=== PATIENT | female | born 1930 | race Native Hawaiian/Other Pacific Islander ===

== ENCOUNTER 2016-11-22 06:50 | Outpatient (CLI) | payer OTHER ==
[~2016-11-22 06:50] MED LIST: HYDROCHLOROT12.5 M1; LEVO0.0723
[2016-11-22 07:12] LABS: PLATELET COUNT 214 K/uL (152-353)
[2016-11-22 08:14] LABS: POTASSIUM 3.8 mmol/L (3.6-5.2)
== END 2016-11-22 07:50 | disposition home or self-care (01) ==
LOC: LABW 06:50
PROVIDERS: Internal Medicine
DX: I10 Essential (primary) hypertension (principal); E03.8 Other specified hypothyroidism; R35.0 Frequency of micturition; R79.89 Other specified abnormal findings of blood chemistry
CPT/HCPCS: 36415; 80053; 80061; 81000; 83036; 84439; 84443; 85027

== ENCOUNTER 2017-06-11 09:05 | Observation (INO) | payer OTHER ==
[~2017-06-11] VITALS: Ht 153.7 cm; Wt 60.6 kg
[2017-06-11 09:10] VITALS: BP 182/76; TEMP 98.3
[2017-06-11 10:28] LABS: POTASSIUM 3.9 mmol/L (3.6-5.2)
[2017-06-11 10:32] LABS: PLATELET COUNT 286 K/uL (152-353)
[2017-06-11 11:30] VITALS: BP 158/62
[2017-06-11 13:30] VITALS: BP 160/45
[2017-06-11 14:11] VITALS: BP 163/65; TEMP 97.8; Ht 153.7 cm; Wt 60.6 kg
[2017-06-11] MEDS ORDERED: SYNTHROID137 MC1 PO (14:17)
[2017-06-11 20:00] VITALS: BP 103/54; TEMP 99.8
[2017-06-12 00:03] VITALS: BP 125/50; TEMP 98.4
== END 2017-06-12 00:20 | disposition short-term general hospital (02) ==
LOC: ED 09:05 → MED/SURG 12:30
PROVIDERS: ADMIT Emergency Medicine
DX: R19.09 Other intra-abdominal and pelvic swelling, mass and lump (principal); R59.0 Localized enlarged lymph nodes; K57.90 Diverticulosis of intestine, part unspecified, without perforation or abscess without bleeding; E03.8 Other specified hypothyroidism; I10 Essential (primary) hypertension
CPT/HCPCS: 36415; 80053; 81000; 84443; 85027; 96365; 96366; 99220; 99284; G0378; Q9963

== ENCOUNTER 2017-06-12 00:23 | Outpatient (CLI) | payer OTHER ==
[~2017-06-12 00:23] MED LIST changes: +SYNTHROID137 MC1 PO
== END 2017-06-12 01:42 | disposition short-term general hospital (02) ==
LOC: AMB 00:23
DX: R19.09 Other intra-abdominal and pelvic swelling, mass and lump (principal); R59.0 Localized enlarged lymph nodes; K57.90 Diverticulosis of intestine, part unspecified, without perforation or abscess without bleeding; E03.8 Other specified hypothyroidism; I10 Essential (primary) hypertension
CPT/HCPCS: A0425; A0429

== ENCOUNTER 2017-07-31 15:12 | Outpatient (CLI) | payer OTHER ==
[2017-07-31 15:47] LABS: PLATELET COUNT 402 K/uL (152-353)
[2017-07-31 15:58] LABS: POTASSIUM 4.6 mmol/L (3.6-5.2)
== END 2017-07-31 19:00 ==
LOC: LABW 15:12
PROVIDERS: Internal Medicine
DX: R06.09 Other forms of dyspnea (principal); R50.9 Fever, unspecified
CPT/HCPCS: 36415; 80053; 81000; 83880; 85027; 85379; 87040

== ENCOUNTER 2017-08-26 19:19 | Emergency (ER) | payer OTHER ==
[~2017-08-26] VITALS: Ht 154.9 cm; Wt 52.6 kg
[2017-08-26 20:20] LABS: PLATELET COUNT 273 K/uL (152-353)
[2017-08-26 21:04] VITALS: BP 142/60; TEMP 99.4
== END 2017-08-26 21:05 | disposition home or self-care (01) ==
LOC: ED 19:19
DX: E86.0 Dehydration (principal); D64.89 Other specified anemias; C56.9 Malignant neoplasm of unspecified ovary
CPT/HCPCS: 36591; 80053; 85027; 96360; 96375; 99284; J1642

== ENCOUNTER 2017-08-28 20:07 | Observation (INO) | payer OTHER ==
[~2017-08-28] VITALS: Ht 167.6 cm; Wt 55.8 kg
[2017-08-28 20:16] VITALS: BP 141/55; TEMP 98.3
[2017-08-28] MEDS ORDERED: DOCU100C10 PO (20:20)
[2017-08-28] MEDS ORDERED: TYLENOL325 MG PO (20:21)
[2017-08-28 21:16] LABS: PLATELET COUNT 323 K/uL (152-353)
[2017-08-28 21:23] LABS: POTASSIUM 3.8 mmol/L (3.6-5.2)
[2017-08-29 04:31] VITALS: BP 199/67; TEMP 99.2
[2017-08-29 04:52] VITALS: BP 143/64; TEMP 98.6; Ht 167.6 cm; Wt 55.8 kg
[2017-08-29 08:00] VITALS: BP 138/61; TEMP 98.3
[2017-08-29 12:00] VITALS: BP 141/65; TEMP 98.1
[2017-08-29 16:00] VITALS: BP 139/65; TEMP 98.5
[2017-08-29 20:00] VITALS: BP 140/68; TEMP 99.2
[2017-08-30 00:21] VITALS: BP 109/56; TEMP 98
[2017-08-30 04:00] VITALS: BP 120/57; TEMP 98.9
[2017-08-30 07:44] VITALS: BP 135/55; TEMP 98.7
== END 2017-08-30 12:30 | disposition home health service (06) ==
LOC: ED 20:07 → MED/SURG 23:16
PROVIDERS: ADMIT Internal Medicine
DX: C56.9 Malignant neoplasm of unspecified ovary (principal); C78.00 Secondary malignant neoplasm of unspecified lung; C79.89 Secondary malignant neoplasm of other specified sites; D64.89 Other specified anemias; D72.828 Other elevated white blood cell count; R11.0 Nausea; E86.0 Dehydration
CPT/HCPCS: 36415; 36591; 80053; 85027; 86850; 86900; 86901; 86922; 96360; 96365; 96366; 96374; 96375; 99220; 99284; G0378; J1642; J1885; J2405